=== PATIENT | female | born 1980 | race Caucasian/White ===

== ENCOUNTER 2019-03-12 17:20 | Emergency (ER) | payer OTHER | END 2019-03-12 19:32 | disposition home or self-care (01) | LOC: JERFT 17:20 ==

== ENCOUNTER 2020-09-18 12:05 | Emergency (ER) | payer OTHER ==
[2020-09-18 12:18] VITALS: BMI 51.2
[2020-09-18 13:14] LABS: BASO % 0.8 % (0-2.0); EOS % 0.2 % (0-4.5); HEMATOCRIT 28.8 % (32.4-45.2); HEMOGLOBIN 9.4 GM/dL (10.7-15.3); LYMPH % 12.2 % (8-40); MCH 26.6 pg (25.7-33.7); MCHC 32.6 g/dl (32.0-36.0); MEAN CELL VOLUME 81.6 fl (80-96); MEAN PLT VOLUME 8.2 fl (7.5-11.1); MONO % 5.9 % (3.8-10.2); NEUT % 80.9 % (42.8-82.8); PLATELET COUNT 373 K/MM3 (134-434); RBC 3.53 M/mm3 (3.60-5.2); RDW 15.4 % (11.6-15.6); WHITE BLOOD COUNT 14.5 K/mm3 (4.0-10.0)
[2020-09-18 13:23] LABS: INR 1.06 (0.83-1.09)
[2020-09-18 13:26] LABS: ACTIVATED PTT 30.1 SECONDS (25.2-36.5)
[2020-09-18 13:30] LABS: CHLORIDE 102 mmol/L (98-107); POTASSIUM 3.8 mmol/L (3.5-5.1); SODIUM 137 mmol/L (136-145)
[2020-09-18 13:32] LABS: CALCIUM 8.9 mg/dL (8.5-10.1)
[2020-09-18 13:33] LABS: ALBUMIN 3.1 g/dl (3.4-5.0); ANION GAP 9 MMOL/L (8-16); BLOOD UREA NITROGEN 11.4 mg/dL (7-18); CO2 26 mmol/L (21-32); GLUCOSE,RANDOM 100 mg/dL (74-106)
[2020-09-18] MEDS ORDERED: ACETAMINOPHEN 500 MG TABLET (FP) PO ONE (13:33)
[2020-09-18 13:36] LABS: CREATININE 0.7 mg/dL (0.55-1.3); SGOT/AST 13 U/L (15-37); SGPT/ALT 18 U/L (13-61)
[2020-09-18] MEDS ORDERED: LACTATED RINGERS SOLUTION 1000 ML INFUS.BAG IV ONE (13:37)
[2020-09-18 13:38] LABS: BILIRUBIN,TOTAL 0.2 mg/dL (0.2-1); TOT PROT 7.2 g/dl (6.4-8.2)
[2020-09-18 13:39] LABS: ALK PHOS 63 U/L (45-117)
[2020-09-18] MEDS ORDERED: ACETAMINOPHEN 325 MG TABLET (FP) ONE (13:42)
[2020-09-18 17:12] VITALS: BP 127/86; PULSE 86; TEMP 98.1
== END 2020-09-18 17:12 | disposition home or self-care (01) ==
LOC: JER 12:05
DX: N93.9 Abnormal uterine and vaginal bleeding, unspecified (principal); R93.89 Abnormal findings on diagnostic imaging of other specified body structures
CPT/HCPCS: 36415; 76830-TC; 80053; 84484; 84703; 85025; 85610; 85730; 86850; 86900; 86901; 93005; 93010; 99285-25

== ENCOUNTER 2020-10-24 04:42 | Day surgery (SDC) | payer OTHER ==
[2020-10-23 09:11] VITALS: BMI 50.8
[2020-10-24] MEDS ORDERED: MIDAZOLAM HCL 2 MG/2 ML SINGLE DOSE VIAL ONE (12:00)
[2020-10-24] MEDS ORDERED: PROPOFOL 20 ML ONE ×2 (12:00)
[2020-10-24] MEDS ORDERED: SUCCINYLCHOLINE CHLORIDE 200 MG/10 ML SYRINGE ONE (12:00)
[2020-10-24] MEDS ORDERED: DEXAMETHASONE SOD PHOSPHATE 4 MG/1 ML VIAL ONE (12:48)
[2020-10-24] MEDS ORDERED: ACETAMINOPHEN 500 MG TABLET (FP) PO PRN (13:42)
[2020-10-24] MEDS ORDERED: ONDANSETRON 4 MG/2 ML VIAL IVPUSH PRN (13:42)
[2020-10-24] MEDS ORDERED: ONDANSETRON 4 MG/2 ML VIAL ONE (15:37)
[2020-10-24 17:32] VITALS: TEMP 98
[2020-10-24 17:35] VITALS: BP 130/73; PULSE 82
== END 2020-10-24 17:10 | disposition home or self-care (01) ==
LOC: JASU-SURG 04:42 → EDSTATUS 12:00 → JASU-SURG 17:10
PROVIDERS: ATTEND Obstetrics & Gynecology
PROC: 0UDB7ZZ Extraction of Endometrium, Via Natural or Artificial Opening (ICD-10-PCS; principal; 2020-10-24 12:00)
PROC: 0UJ Female Reproductive System, Inspection (ICD-10-PCS; 2020-10-24 12:00)
DX: N93.8 Other specified abnormal uterine and vaginal bleeding (principal)
CPT/HCPCS: 81025; 88305-TC; 94760

== ENCOUNTER 2020-11-20 18:56 | Observation (INO) | payer OTHER ==
[2020-11-20 19:01] VITALS: BMI 51.2
[2020-11-20 22:19] LABS: CHLORIDE 104 mmol/L (98-107); SODIUM 136 mmol/L (136-145)
[2020-11-20 22:21] LABS: CALCIUM 8.1 mg/dL (8.5-10.1)
[2020-11-20 22:22] LABS: ALBUMIN 2.7 g/dl (3.4-5.0); ANION GAP 8 MMOL/L (8-16); BLOOD UREA NITROGEN 14.4 mg/dL (7-18); CO2 24 mmol/L (21-32); GLUCOSE,RANDOM 106 mg/dL (74-106)
[2020-11-20 22:25] LABS: CREATININE 0.6 mg/dL (0.55-1.3); SGOT/AST 33 U/L (15-37); SGPT/ALT 21 U/L (13-61)
[2020-11-20 22:26] LABS: BILIRUBIN,TOTAL 0.2 mg/dL (0.2-1)
[2020-11-20 22:27] LABS: TOT PROT 7.1 g/dl (6.4-8.2)
[2020-11-20 22:28] LABS: ALK PHOS 69 U/L (45-117)
[2020-11-21 01:11] LABS: INR 0.99 (0.83-1.09)
[2020-11-21] MEDS ORDERED: ENOXAPARIN NA (PORCINE) 120 MG/0.8 ML DISP.SYRIN SQ ONE (01:30)
[2020-11-21 04:29] LABS: IRON SERUM 23 ug/dL (50-175); TOTAL IRON BINDING CAPACITY 450 ug/dL (250-450)
[2020-11-21 05:02] LABS: RETICULOCYTES 2.85 % (0.5-1.5)
[2020-11-21 05:04] LABS: BASO % 0.8 % (0-2.0); EOS % 2.9 % (0-4.5); HEMATOCRIT 24.1 % (32.4-45.2); HEMOGLOBIN 7.3 GM/dL (10.7-15.3); LYMPH % 27.1 % (8-40); MCH 21.4 pg (25.7-33.7); MCHC 30.4 g/dl (32.0-36.0); MEAN CELL VOLUME 70.6 fl (80-96); MEAN PLT VOLUME 8.5 fl (7.5-11.1); MONO % 8.5 % (3.8-10.2); NEUT % 60.7 % (42.8-82.8); PLATELET COUNT 384 K/MM3 (134-434); RBC 3.42 M/mm3 (3.60-5.2); WHITE BLOOD COUNT 13.8 K/mm3 (4.0-10.0)
[2020-11-21 05:18] LABS: LDH 452 U/L (84-246)
[2020-11-21] MEDS ORDERED: ENOXAPARIN NA (PORCINE) 40 MG/0.4 ML DISP.SYRIN SQ ONE (05:45)
[2020-11-21] MEDS ORDERED: ENOXAPARIN NA (PORCINE) 80 MG/0.8 ML DISP.SYRIN SQ ONE (05:45)
[2020-11-21 11:40] LABS: BASO % 0.4 % (0-2.0); EOS % 2.3 % (0-4.5); HEMATOCRIT 32.3 % (32.4-45.2); HEMOGLOBIN 10.1 GM/dL (10.7-15.3); LYMPH % 19.8 % (8-40); MCH 23.8 pg (25.7-33.7); MCHC 31.4 g/dl (32.0-36.0); MEAN CELL VOLUME 75.8 fl (80-96); MEAN PLT VOLUME 8.3 fl (7.5-11.1); MONO % 5.8 % (3.8-10.2); NEUT % 71.7 % (42.8-82.8); PLATELET COUNT 370 K/MM3 (134-434); RBC 4.26 M/mm3 (3.60-5.2); RDW 24.1 % (11.6-15.6); WHITE BLOOD COUNT 14.2 K/mm3 (4.0-10.0)
[2020-11-21] MEDS ORDERED: ENOXAPARIN NA (PORCINE) 120 MG/0.8 ML DISP.SYRIN SQ SCH (12:00)
[2020-11-21 12:42] LABS: CALCIUM 8.3 mg/dL (8.5-10.1)
[2020-11-21 12:43] LABS: BLOOD UREA NITROGEN 8.7 mg/dL (7-18); MAGNESIUM 2.4 mg/dL (1.8-2.4)
[2020-11-21 12:46] LABS: CREATININE 0.6 mg/dL (0.55-1.3); PHOSPHOROUS 2.6 mg/dL (2.5-4.9)
[2020-11-21 15:58] VITALS: BP 137/77; PULSE 81; TEMP 98.2
[2020-11-21] MEDS ORDERED: APIXABAN 5 MG TABLET PO SCH (22:00)
== END 2020-11-21 17:49 | disposition home or self-care (01) ==
LOC: JER 18:56 → UNDOADMOB 11-21 01:04 → INTOOBSV 11-21 01:04 → JERBED 11-21 01:04 → J8W 11-21 05:43 → JERBED 11-21 05:43 → J8W 11-21 11:05
PROVIDERS: ADMIT Hospitalist; ATTEND Internal Medicine
PROC: 3E023GC Introduction of Other Therapeutic Substance into Muscle, Percutaneous Approach (ICD-10-PCS; principal; 2020-11-21)
PROC: 30233N1 Transfusion of Nonautologous Red Blood Cells into Peripheral Vein, Percutaneous Approach (ICD-10-PCS; 2020-11-21)
DX: D64.9 Anemia, unspecified (principal); N93.8 Other specified abnormal uterine and vaginal bleeding; I82.401 Acute embolism and thrombosis of unspecified deep veins of right lower extremity; E66.01 Morbid (severe) obesity due to excess calories; Z68.43 Body mass index [BMI] 50.0-59.9, adult; Z29.9 Encounter for prophylactic measures, unspecified
CPT/HCPCS: 36415; 36430; 71045-TC-FY; 80048; 80053; 82272; 82728; 83010; 83540; 83550; 83615; 83735; 84100; 84484; 84703; 85025; 85045; 85610; 85730; 86850; 86900; 86901; 86922; 87086; 93005; 93010; 93971-TC; 96372; 99285-25; C9803; G0378; P9058; U0003; U0005

== ENCOUNTER 2023-10-18 12:43 | Emergency (ER) | payer OTHER ==
[2023-10-18 12:56] VITALS: BP 142/77; PULSE 86; RESP 12; BMI 44.8
== END 2023-10-18 13:19 | disposition left against medical advice (07) ==
LOC: JER 12:43
DX: R42 Dizziness and giddiness (principal); Z53.21 Procedure and treatment not carried out due to patient leaving prior to being seen by health care provider
CPT/HCPCS: 99281-25